=== PATIENT | female | born 1960 | race Caucasian/White ===

== ENCOUNTER → 2024-02-08 | Outpatient (CLI) | payer BC, SELFPAY ==
[2024-02-08 16:27] LABS: Collection Type, Urine Clean Catch
[2024-02-08 17:50] LABS: Bacteria,Urine 2+; Bilirubin,Urine Negative (Negative); Blood,Urine Negative (Negative); Clarity,Urine Turbid (Clear/Hazy); Color,Urine Yellow (Lt Yel-Yel); Glucose, Urine Negative (Negative); Ketones,Urine Negative (Negative); Leukocyte Esterase,Urine Positive (Negative); Nitrite,Urine Positive (Negative); PH,Urine 6.5 (5.0-7.0); Protein,Urine Trace (Neg - Trace); RBC,Urine 11 /hpf (0-3); Specific Gravity,Urine 1.021 (1.001-1.035); Squamous Epithelial Cell,Urine 3 /hpf (0-5); Urobilinogen,Urine Negative mg/dL (0.0-1.0); WBC,Urine 125 /hpf (0-5)
== END | disposition home or self-care (01) ==
LOC: SLDO 16:20
PROVIDERS: PCP Nurse Practitioner Family; Referring Provider Nurse Practitioner Family; Visit Provider Nurse Practitioner Family
DX: N39.0 Urinary tract infection, site not specified (principal)
CPT/HCPCS: 81001; 87077; 87086; 87186

== ENCOUNTER → 2024-04-11 | Outpatient (CLI) | payer BC, SELFPAY ==
[2024-04-11 10:12] LABS: Lactate (Lactic Acid) 1.1 mMol/L (0.4-2.0)
[2024-04-11 10:22] LABS: Basophils # (Auto) 0.1 Thou/mm3 (0.0-0.2); Basophils % (Auto) 1 % (0-2.5); Eosinophils # (Auto) 0.1 Thou/mm3 (0.0-0.5); Eosinophils % (Auto) 1 % (0-10); Hematocrit 30.9 % (36.0-46.0); Hemoglobin 10.1 g/dL (12.0-16.0); Immature Granulocytes % (Auto) 0 % (0-0); Immature Granulocytes Auto 0.03 Thou/mm3 (0.00-0.00); Lymphocytes # (Auto) 1.7 Thou/mm3 (1.0-4.8); Lymphocytes % (Auto) 21 % (10-50); Mean Corpuscular HGB Conc 32.7 g/dl (31.0-37.0); Mean Corpuscular Hemoglobin 29.4 pg (25.0-35.0); Mean Corpuscular Volume 90 fL (80-100); Monocytes # (Auto) 0.5 Thou/mm3 (0.0-0.8); Monocytes % (Auto) 6 % (0-12); Neutrophils # (Auto) 5.5 Thou/mm3 (1.8-7.7); Neutrophils % (Auto) 70 % (37-80); Nucleated Red Blood Cell % 0 /100 WBC (0); Platelet Count 286 Thou/mm3 (140-440); RDW Standard Deviation 50.6 fL (36.4-46.3); Red Blood Count 3.44 Miln/mm3 (4.00-5.20); White Blood Count 7.9 Thou/mm3 (3.6-11.0)
[2024-04-11 10:41] LABS: Alanine Aminotransferase 12 U/L (10-49); Albumin, Serum 4.2 gm/dL (3.4-4.8); Albumin/Globulin Ratio 1.8 (1.2-2.2); Alkaline Phosphatase 86 U/L (46-116); Anion Gap 9 (7-16); Aspartate Amino Transferase 14 U/L (0-34); BUN/Creatinine Ratio 31 Ratio (12-20); Bilirubin,Total 0.2 mg/dL (0.3-1.2); Blood Urea Nitrogen 25 mg/dL (9-23); Calcium 9.3 mg/dL (8.3-10.6); Calcium (Corrected) 9.3 mg/dL (8.5-10.1); Carbon Dioxide 25.3 mMol/L (20.0-31.0); Chloride 104 mMol/L (98-107); Creatinine (Component) 0.8 mg/dL (0.6-1.3); Globulin 2.4 gm/dL (2.3-3.5); Glucose 109 mg/dL (74-106); Osmolality,Calculated 281 (275-295); Potassium 5.1 mMol/L (3.4-5.1); Sodium 138 mMol/L (136-145); Total Protein 6.6 gm/dL (5.7-8.2); eGFR > 60 See Note
== END | disposition home or self-care (01) ==
LOC: COPL 09:34
PROVIDERS: PCP Family Medicine; Referring Provider Registered Nurse; Visit Provider Registered Nurse
DX: I95.9 Hypotension, unspecified (principal)
CPT/HCPCS: 36415; 80053; 83605; 85025

== ENCOUNTER 2024-08-18 05:39 | Emergency (ER) | payer BC, SELFPAY ==
[2024-08-18 05:45] VITALS: BP 119/79; PULSE 86; RESP 15; TEMP 36.8; O2SAT 96; BMI 24.7
--- NOTE | 2024-08-18 06:13 | EDNOTE_ITS ---
ED Headache RME/HPI General Chief Complaint: Headache Stated Complaint: migraine since sunday Time Seen by Provider: 08/18/24 06:15 Source: patient Arrival date/time: 08/18/24 05:39 64-year-old female with a history of migraines presents to the emergency room with a chief complaint of a migraine since Sunday. Mode of arrival: ambulatory Limitations: no limitations Related Data Home Medications ?Medication ?Instructions ?Recorded ?Confirmed alprazolam 0.25 mg tablet 0.25 mg PO BID PRN ANXIETY # 0 tabs 09/17/16 08/24/21 omeprazole 20 mg capsule,delayed 20 mg PO QDAY ##0 08/24/21 release sumatriptan succinate 100 mg 100 mg PO Q2HR PRN HEADAC HE 09/17/16 08/24/21 tablet (Imitrex) (MIGRAINE) #0 tabs Previous Rx's ?Medication ?Instructions ?Recorded promethazine 12.5 mg rectal 12.5 mg NC Q8HR PRN nausea and 12/15/19 suppository vomiting #12 ea cyclobenzaprine 10 mg tablet 10 mg PO TID PRN muscle s pasm #30 03/25/20 tabs promethazine 12.5 mg rectal 12.5 mg NC Q8HR PRN nausea and 08/24/21 suppository vomiting #12 ea promethazine 12.5 mg rectal 12.5 mg NC Q8HR PRN nausea and 10/03/21 suppository vomiting #12 ea promethazine 12.5 mg rectal 12.5 mg NC Q8HR PRN nausea and 05/01/22 suppository vomiting #12 ea promethazine 12.5 mg rectal 12.5 mg NC Q8HR PRN nausea and 05/23/23 suppository vomiting #12 ea Allergies Allergy/AdvReac Type Severity Reaction Status Date / Time Iodine and Iodide Containing Allergy Severe Hives Verified 10/12/23 13:11 Produc Review of Systems Review of Systems Systems Reviewed: All systems reviewed, normal except as documented Constitutional Constitutional: Reports system reviewed and no additional complaints, except as documented, Denies fatigue, Denies fever(s), Reports headache(s) and Denies weakness Eyes Eyes: Reports system reviewed and no additional complaints, except as documented, Denies blurry vision and Denies change in vision ENT Ears, Nose, Mouth, and Throat: Reports system reviewed and no additional complaints, except as documented, Denies otalgia, Reports headache(s), Denies nasal congestion, Denies throat swelling and Denies vertigo Cardiovascular Cardiovascular: Reports system reviewed and no additional complaints, except as documented, Denies chest pain, Denies dyspnea and Denies dyspnea on exertion Respiratory Respiratory: Reports system reviewed and no additional complaints, except as documented, Denies chest congestion, Denies cough, Denies dyspnea, Denies dyspnea on exertion and Denies wheezing Gastrointestinal Gastrointestinal: Reports system reviewed and no additional complaints, except as documented, Denies abdominal pain, Denies cramping, Denies nausea and Denies vomiting Genitourinary Genitourinary: Reports system reviewed and no additional complaints, except as documented Musculoskeletal Musculoskeletal: Reports system reviewed and no additional complaints, except as documented and Denies back pain Integumentary/Breasts Skin/Breast: Reports system reviewed and no additional complaints, except as documented and Denies wounds Neurologic Neurologic: Reports system reviewed and no additional complaints, except as documented, Denies confusion, Reports headache(s), Denies lack of coordination, Denies vertigo and Denies weakness Psychiatric Psychiatric: Reports system reviewed and no additional complaints, except as documented, Denies anxiety, Denies confusion, Denies depression, Denies paranoia, Denies suicidal ideation and Denies tactile hallucinations Endocrine Endocrine: Reports system reviewed and no additional complaints, except as documented and Denies fatigue Hematologic/Lymphatic Hematologic/Lymphatic: Reports system reviewed and no additional complaints, except as documented and Denies lymphadenopathy Allergic/Immunologic Allergic/Immunologic: Reports system reviewed and no additional complaints, except as documented, Denies throat swelling, Denies urticaria and Denies wheezing Past Medical History Past Medical History NEUROLOGIC: Positive Neurological Disorders and Migraine CARDIAC: Negative Congestive Heart Failure RESPIRATORY: Negative Chronic Obstructive Pulmonary Disease (COPD) GENITOURINARY: Negative Renal Disease ENDOCRINE: Negative Diabetes Mellitus Type 1 or Diabetes Mellitus Type 2 Surgical History SURGICAL: Positive Hysterectomy Social History SMOKING STATUS: Never smoker ED Exam General Limitations: Present no limitations General appearance: Present alert and in no apparent distress Head Head exam: Present atraumatic Eye Eye exam: Present normal appearance, PERRL and EOMI ENT ENT exam: Present normal exam, normal oropharynx and mucous membranes moist Neck Neck exam: Present normal inspection, full ROM and trachea midline Chest Chest inspection: Present normal inspection and symmetric chest wall rise Respiratory Respiratory exam: Present normal lung sounds bilaterally Cardiovascular Cardiovascular exam: Present regular rate, normal rhythm and normal heart sounds Abdominal Exam Abdominal exam: Present soft and normal bowel sounds Extremities Exam Extremities exam: Present normal inspection and full ROM Back Exam Back exam: Present normal inspection and full ROM Neurological Exam Neurological exam: Present alert, oriented X3, CN II-XII intact, normal gait and reflexes normal Expanded Neurological Exam Patient oriented to: Present person, place and time Speech: Present fluid speech Cranial nerves: Normal: EOM function (II, III, IV, ), facial sensation (V) and facial palsy (VII) Cerebellar function: Present normal gait Motor strength - LUE: 5/5 Motor strength - RUE: 5/5 Motor strength - LLE: 5/5 Motor strength - RLE: 5/5 Coma scale eye opening: spontaneous Coma scale motor response: obeys commands Coma scale verbal response: oriented Coma scale total: 15 Psychiatric Psychiatric exam: Present normal affect and normal mood Skin Skin exam: Present warm, dry, intact and normal color Course Quality Measures none Orders Category Date Time Status DiphenhydrAMINE [Benadryl] Med 08/18/24 06:09 Discontinued 25 mg PO X1 ONE Ketorolac Inj [Toradol Inj] Med 08/18/24 06:09 Discontinued 30 mg IM X1 ONE Metoclopramide [Reglan] Med 08/18/24 06:11 Discontinued 10 mg PO X1 ONE Vital Signs Vital signs: Vital Signs Temperature 98.3 F 08/18/24 05:45 Pulse Rate 86 08/18/24 05:45 Respiratory Rate 15 08/18/24 05:45 Blood Pressure 119/79 08/18/24 05:45 Pulse Oximetry (%) 96 08/18/24 05:45 Oxygen Delivery Method Room Air 08/18/24 05:45 Headache MDM Narrative MDM Narrative:: 64-year-old female with a history of migraines presents to the emergency room with a chief complaint of a migraine since Sunday. Patient is hemodynamically stable and in no apparent distress Physical examination shows a normal neurological exam. The patient is a GCS of 15 pupils are PERRLA EOMs are intact the patient has a normal steady gait. Patient denies any head trauma. Migraine medication was given the patient was reevaluated in 1 hour with significant improvement of her symptoms. Patient has a neurologist that follows up with her migraines and states that she recently got Botox which helped. Patient was discharged and educated to follow-up with primary care provider in the next 24 to 48 hours and return to the emergency room for any evidence of worsening signs or symptoms Patient data External records reviewed:: [facility] previous records Clinical information provided by:: patient Social determinants that could affect healthcare access:: none Patient has the following chronic illnesses:: Migraines How is presenting disease/condition affected by chronic disease/condition?: exacerbated by Evaluation data The following diagnostics were reviewed and interpreted by me:: lab results and radiology exam(s) Lab and/or radiology exams considered but not ordered:: Labs and radiology exams considered and ordered Interpretation Summary: N/A Medications / Prescriptions Medications or Prescriptions considered but not ordered:: Medication given Medication administrations:: Medication Administration History Discontinued Medications Diphenhydramine HCl (Diphenhydramine 25 Mg Capsule) 25 mg PO X1 ONE Stop: 08/18/24 06:10 Last Admin: 08/18/24 06:28 Dose: 25 mg Documented By: SONYA Ketorolac Tromethamine (Ketorolac Inj 60 Mg/2 Ml Vial) 30 mg IM X1 ONE Stop: 08/18/24 06:10 Last Admin: 08/18/24 06:28 Dose: 30 mg Documented By: SONYA Metoclopramide HCl (Metoclopramide 5 Mg Tablet) 10 mg PO X1 ONE Stop: 08/18/24 06:12 Last Admin: 08/18/24 06:28 Dose: 10 mg Documented By: SONYA Medication given Consultations Consultation(s) initiated? (list below): No Diagnosis Differential diagnosis headache: migraine, tension headache, headache and sinusitis Most likely diagnosis given after review of the tests above:: Migraine Admission Indicated Admission indicated?: not indicated Admission Request Was there a request for admission?: No Disposition Plan Disposition Plan: Discharge Discharge Attestation Discharge Attestation: The patient and all family members were given an opportunity to ask questions and understood the discharge instructions. Discharge instructions specifically effects, indications for sooner follow up or return to the emergency department, and the expected course of current diagnosis. Patient condition: Stable Discharge Plan Plan Patient Disposition: HOME (Self Care) Discharge Disposition comment: Stable Prescriptions/Referrals Prescriptions/Med Rec: No Action sumatriptan succinate [Imitrex] 100 MG tablet 100 mg PO Q2HR PRN (Reason: HEADACHE (MIGRAINE)) Qty: 0 alprazolam 0.25 MG tablet 0.25 mg PO BID PRN (Reason: ANXIETY) Qty: 0 omeprazole 20 MG capsule,delayed release(DR/EC) 20 mg PO QDAY Qty: 0 promethazine 12.5 mg suppository 12.5 mg NC Q8HR PRN (Reason: nausea and vomiting) Qty: 12 0RF cyclobenzaprine 10 mg tablet 10 mg PO TID PRN (Reason: muscle spasm) Qty: 30 0RF promethazine 12.5 mg suppository 12.5 mg NC Q8HR PRN (Reason: nausea and vomiting) Qty: 12 0RF promethazine 12.5 mg suppository 12.5 mg NC Q8HR PRN (Reason: nausea and vomiting) Qty: 12 0RF promethazine 12.5 mg suppository 12.5 mg NC Q8HR PRN (Reason: nausea and vomiting) Qty: 12 0RF promethazine 12.5 mg suppository 12.5 mg NC Q8HR PRN (Reason: nausea and vomiting) Qty: 12 0RF Problem List Clinical Impression: Migraine Patient/Caregiver Discharge Instructions Education Materials: Headache Migraine Stages Tx, Headache Migraine Triggers Prevent, ED Headache, Migraine, Classic Additional Instructions: Please follow-up with your primary care provider in the next 24 to 48 hours For any evidence of worsening signs or symptoms return to emergency room immediately Print Language: Paraguayan Stand Alone Forms: [facility] Award Info., Work/School Release, Patient Portal Info Letter PA/COVERSTITCH ELASTIC ATTACHER Supervising Physician PA/COVERSTITCH ELASTIC ATTACHER Supervising Physician: Dr Monaco
[2024-08-18] MEDS: METOCLOPRAMIDE 5 MG TABLET 10 MG PO (06:28)
[2024-08-18] MEDS: KETOROLAC INJ 60 MG/2 ML VIAL 30 MG IM (06:28)
[2024-08-18] MEDS: DiphenhydrAMINE 25 MG CAPSULE PO (06:28)
== END 2024-08-18 07:02 | disposition home or self-care (01) ==
LOC: SERX 07:06
PROVIDERS: Emergency Provider Emergency Medicine; PCP Family Medicine
DX: G43.909 Migraine, unspecified, not intractable, without status migrainosus (principal)
CPT/HCPCS: 96372; 99283; J1885; A9270

== ENCOUNTER 2025-03-04 14:33 | Emergency (ER) | payer BC, SELFPAY ==
[2025-03-04 14:49] VITALS: PULSE 69; RESP 16; O2SAT 98
[2025-03-04 14:53] VITALS: BP 127/84; PULSE 65; RESP 19; TEMP 36.7; O2SAT 96
[2025-03-04 16:20] VITALS: BP 131/72; PULSE 63; RESP 16; TEMP 36.8; O2SAT 97
--- NOTE | 2025-03-04 16:30 | EKG_ITS ---
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
--- NOTE | 2025-03-04 16:31 | PD.EDABDPN ---
ED Abdominal Pain RME/HPI General Chief Complaint: Abdominal Pain Stated complaint: SYNCOPE Time seen by provider: 03/04/25 16:28 Arrival date/time: 03/04/25 14:33 RME / HPI RME / HPI narrative: DR. CARSON MAIN ED EVALUATION: Patient with long-standing chronic constipation on Linzess therapy and followed by GI specialist presents with ongoing generalized abdominal pain of approximately 4-5 days duration. 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 PMH: Chronic Constipation, Esophageal Stricture PSH: Esophageectomy with small bowel transposition Allergies: Iodine/Iodide Social: Alcohol overuse disorder, No tobacco, No illicit drugs Related Data Home Medications ?Medication ?Instructions ?Recorded ?Confirmed alprazolam 0.25 mg tablet 0.25 mg PO BID PRN ANXIETY #0 tabs 09/17/16 08/24/21 omeprazole 20 mg capsule,delayed 20 mg PO QDAY ##0 09/17/16 08/24/21 release sumatriptan succinate 100 mg 100 mg PO Q2HR PRN HEADACHE 09/17/16 08/24/21 tablet (Imitrex) (MIGRAINE) #0 tabs Previous Rx's ?Medication ?Instructions ?Recorded promethazine 12.5 mg rectal 12.5 mg WI Q8HR PRN nausea and 12/15/19 suppository vomiting #12 ea cyclobenzaprine 10 mg tablet 10 mg PO TID PRN muscle spasm #30 03/25/20 tabs promethazine 12.5 mg rectal 12.5 mg WI Q8HR PRN nausea and 08/24/21 suppository vomiting #12 ea promethazine 12.5 mg rectal 12.5 mg WI Q8HR PRN nausea and 10/03/21 suppository vomiting #12 ea promethazine 12.5 mg rectal 12.5 mg WI Q8HR PRN nausea and 05/01/22 suppository vomiting #12 ea promethazine 12.5 mg rectal 12.5 mg WI Q8HR PRN nausea and 05/23/23 suppository vomiting #12 ea tramadol 25 mg tablet 25 mg PO TID #14 tabs 03/04/25 Allergies Allergy/AdvReac Type Severity Reaction Status Date / Time Iodine and Iodide Containing Allergy Severe Hives Verified 03/04/25 14:51 Produc Review of Systems Review of Systems Systems Reviewed: All systems reviewed, normal except as documented Past Medical History Social History ALCOHOL: Current ALCOHOL FREQUENCY: 3 or More Drinks per Day ALCOHOL LAST INTAKE: Unknown ED Exam Narrative Physical exam: GEN. APPEARANCE: The patient is alert awake oriented X-3 under no distress, lying down comfortably, does not look ill/toxic. Patient has good eye contact. Patient is cooperative. VITALS: All vitals were reviewed and the pulse ox is 97%, which is normal according to my interpretation HEENT: Normocephalic, atraumatic and nontender. Pupils are equal and reactive. Oral mucosa is moist. NECK: Supple, nontender, no meningismus, no JVD. There is no thyromegaly and no lymphadenopathy. CHEST: Nontender on palpation no deformity and no crepitus. CARDIOVASCULAR: Heart regular rhythm, no murmur or gallop rub or extra beats. LUNGS: Clear to auscultation bilaterally with symmetrical chest rise. No laboring tachypnea or wheezing. No intercostal subcostal retraction. No rales and no rhonchi. ABDOMEN: Soft, flat, generalized tenderness to the RUQ/RLQ, no guarding or rebound tenderness. There are no abnormal masses palpated. No pulsatile masses or bruits. Active and normal bowel sounds. EXTREMITIES: Normal inspection and palpation. No edema. No cyanosis. Patient is able to move all 4 extremities well SKIN: Warm and dry, no rashes noted. MUSCULOSKELETAL: No lumbar or midline bony tenderness. There is no CVA tenderness. No paraspinal muscle spasm or tenderness. NEURO: Cranial nerves II through XII grossly intact. There are no focal neurologic deficits noted. GCS is 15 PSYCHIATRIC: Patient is in normal mood and affect, cooperative. LYMPHATICS: No major lymphadenopathy noted. Course Quality Measures none Orders Category Date Time Status CT Screening NOW Care 03/04/25 16:32 Completed EKG (ED ONLY) *Do not use* NOW Care 03/04/25 16:[address] abdomen pelvis wo con Stat Exams 03/04/25 16:40 Completed EKG (ED Only) Stat Exams 03/04/25 16:30 Draft B-Type Natriuretic Peptide Stat Lab 03/04/25 17:04 Completed CBC [CBC] Stat Lab 03/04/25 17:04 Completed CMP [Comprehensive Metabolic Panel] Stat Lab 03/04/25 17:04 Completed Lipase Stat Lab 03/04/25 17:04 Completed Magnesium Stat Lab 03/04/25 17:04 Completed Partial Thromboplastin Time Stat Lab 03/04/25 17:04 Completed Prothrombin Time with INR Stat Lab 03/04/25 17:04 Completed TSH [Thyroid Stimulating Hormone] Stat Lab 03/04/25 17:04 Completed Urinalysis, C/S if Indicated Stat Lab 03/04/25 17:29 Completed Magnesium Citrate Liqd [Citrate of Magnesia Liqd] Med 03/04/25 19:25 Discontinued 150 ml PO X1 ONE Morphine* Inj Med 03/04/25 16:34 Discontinued 4 mg IVP X1 ONE Morphine* Inj Med 03/04/25 19:20 Discontinued 4 mg IVP X1 ONE Ondansetron Inj [Zofran Inj] Med 03/04/25 16:34 Discontinued 4 mg IVP X1 ONE Sodium Chloride 0.9% 1000 ml [Ns] 1,000 ml Med 03/04/25 16:30 Discontinued IV 999 mls/hr Vital Signs Vital signs: Vital Signs Temperature 98.1 F 03/04/25 14:53 Pulse Rate 65 03/04/25 14:53 Respiratory Rate 19 03/04/25 14:53 Blood Pressure 127/84 03/04/25 14:53 Pulse Oximetry (%) 96 03/04/25 14:53 Oxygen Delivery Method Room Air 03/04/25 14:53 Abdominal Pain MDM MDM Narrative MDM Narrative:: Scribe Attestation: ILibby am scribing for and in the presence of Dr. Christiansen. Provider Notation: Although this document has been carefully reviewed, there may still be some phonetic and other typographical errors. These errors are purely grammatical due to imperfections in the software program and should not be construed in any way to compromise the substance of the patient's medical care during this visit. Patient with long-standing chronic constipation on Linzess therapy and followed by GI specialist presents with ongoing generalized abdominal pain of approximately 4-5 days duration. 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 Please see PE findings. Laboratory markers, including CBC and serum chemistries were essentially unremarkable. UA was negative. CT scan demonstrated abundance of stool within right colon. Minimal thickening of the bladder wall suggestive of possible cystitis. No obstructive findings or gross inflammation apparent. Patient administered IV fludis, low-dose narcotic analgesics/anti-emetics with mild to moderate relief. Patient data External records reviewed:: [facility] previous records (Reviewed prior ED records from 08/18/24. Patient was seen for Migraine.) and EMS form Clinical information provided by:: patient and EMS Social determinants that could affect healthcare access:: none Patient has the following chronic illnesses:: Chronic Constipation, Esophageal Stricture How is presenting disease/condition affected by chronic disease/condition?: exacerbated by Evaluation data The following diagnostics were reviewed and interpreted by me:: lab results, radiology exam(s) and EKG tracing(s) (EKG demonstrates ) Lab and/or radiology exams considered but not ordered:: None Interpretation Summary: RADIOLOGY Abdomen/Pelvis CT: Findings: No focal liver or splenic lesions No gallstones No pancreatic or adrenal mass No renal or ureteral calculi, no hydronephrosis No pericecal inflammatory change Abundant stool in the right colon No obstruction No diverticulitis Absent uterus No pelvic mass Minimal thickening of the urinary bladder wall Grade 1 anterolisthesis L4 on L5 with 4 mm central lumbar disc bulge at this level and moderate bilateral L4 ganglionic compression IMPRESSION: No renal or ureteral calculi, no hydronephrosis Abundant stool in the right colon, no obstruction No CT findings of appendicitis or diverticulitis Minimal thickening of the urinary bladder wall, consider cystitis L4-L5 grade 1 anterolisthesis with 4 mm central lumbar disc bulge producing moderate bilateral L4 ganglionic compression Medications / Prescriptions Medications or Prescriptions considered but not ordered:: None Medication administrations:: Medication Administration History Discontinued Medications Sodium Chloride (Ns) 1,000 mls @ 999 mls/hr IV .Q1H1M ONE Stop: 03/04/25 17:30 Last Infusion: 03/04/25 18:17 Dose: Infused Documented By: Admin: 03/04/25 17:16 Dose: 999 mls/hr Documented By: DOTTIE Magnesium Citrate (Magnesium Citrate 300 Ml Btl) 150 ml PO X1 ONE Stop: 03/04/25 19:26 Last Admin: 03/04/25 19:52 Dose: 150 ml Documented By: DOTTIE Morphine Sulfate (Morphine Sulf Inj 4 Mg/Ml Vial) 4 mg IVP X1 ONE Stop: 03/04/25 16:35 Last Admin: 03/04/25 17:12 Dose: 4 mg Documented By: DOTTIE Morphine Sulfate (Morphine Sulf Inj 4 Mg/Ml Vial) 4 mg IVP X1 ONE Stop: 03/04/25 19:21 Last Admin: 03/04/25 19:36 Dose: 4 mg Documented By: DOTTIE Ondansetron HCl (Ondansetron Inj 2 Mg/Ml Inj 2 Ml) 4 mg IVP X1 ONE; Protocol Stop: 03/04/25 16:35 Last Admin: 03/04/25 17:12 Dose: 4 mg Documented By: DOTTIE See abvoe if any Consultations Consultation(s) initiated? (list below): No Diagnosis Differential diagnosis abdominal pain: acute appendicitis, constipation and small bowel obstruction Most likely diagnosis given after review of the tests above:: Constipation, UTI Admission Indicated Admission indicated?: not indicated Explain why admission is indicated or not indicated:: Patient does not meet admission criteria Admission Request Was there a request for admission?: No Disposition Plan Disposition Plan: Discharge Discharge Attestation Discharge Attestation: The patient and all family members were given an opportunity to ask questions and understood the discharge instructions. Discharge instructions specifically effects, indications for sooner follow up or return to the emergency department, and the expected course of current diagnosis. Patient condition: Stable Discharge Plan Plan Patient Disposition: HOME (Self Care) Discharge Disposition comment: Stable Prescriptions/Referrals Prescriptions/Med Rec: New tramadol 25 mg tablet 25 mg PO TID Qty: 14 0RF Rx Instructions: Pt to avoid Flexeril while on tramadol No Action sumatriptan succinate [Imitrex] 100 MG tablet 100 mg PO Q2HR PRN (Reason: HEADACHE (MIGRAINE)) Qty: 0 alprazolam 0.25 MG tablet 0.25 mg PO BID PRN (Reason: ANXIETY) Qty: 0 omeprazole 20 MG capsule,delayed release(DR/EC) 20 mg PO QDAY Qty: 0 promethazine 12.5 mg suppository 12.5 mg WI Q8HR PRN (Reason: nausea and vomiting) Qty: 12 0RF cyclobenzaprine 10 mg tablet 10 mg PO TID PRN (Reason: muscle spasm) Qty: 30 0RF promethazine 12.5 mg suppository 12.5 mg WI Q8HR PRN (Reason: nausea and vomiting) Qty: 12 0RF promethazine 12.5 mg suppository 12.5 mg WI Q8HR PRN (Reason: nausea and vomiting) Qty: 12 0RF promethazine 12.5 mg suppository 12.5 mg WI Q8HR PRN (Reason: nausea and vomiting) Qty: 12 0RF promethazine 12.5 mg suppository 12.5 mg WI Q8HR PRN (Reason: nausea and vomiting) Qty: 12 0RF Referrals: Keon Vallecillo MD [Primary Care Provider, Family Practice] - In 1 week Problem List Clinical Impression: Constipation, Constipation by delayed colonic transit, UTI (urinary tract infection) Impression comment: Constipation/UTI Patient/Caregiver Discharge Instructions Discharge Activity: activity as tolerated Diet Instructions: Clear liquid diet x 24 hours and advance as tolerated. Education Materials: Treating Constipation, ED CYSTITIS Female Adult Additional Instructions: Maintain clear liquid diet x 24 hours and advance as tolerated. Medications as directed. Follow-up with primary care/GI in 1 week. Print Language: Italian Stand Alone Forms: [facility] Award Info., Work/School Release, Patient Portal Info Letter
--- NOTE | 2025-03-04 16:40 | XR_ITS ---
Examination: CT abdomen and pelvis without contrast. Coronal 3-D reconstructions. Sagittal 2-D reconstructions. Date and time of exam: March 04, 2025, 1736 hours, comparison October 15, 2015 INDICATIONS: Right-sided abdominal pain today CTDI: vol (mGy): 7.06 DLP: (mGycm): 395 Technique: Axial images of the abdomen have been obtained, 3 mm slice thickness Intravenous contrast material has not been administered. Low dose protocols were performed. One or more of the following dose reduction techniques were used; automated exposure control, adjustment of the mA and/or KV according to patient size, use of iterative reconstruction technique. Findings: No focal liver or splenic lesions No gallstones No pancreatic or adrenal mass No renal or ureteral calculi, no hydronephrosis No pericecal inflammatory change Abundant stool in the right colon No obstruction No diverticulitis Absent uterus No pelvic mass Minimal thickening of the urinary bladder wall Grade 1 anterolisthesis L4 on L5 with 4 mm central lumbar disc bulge at this level and moderate bilateral L4 ganglionic compression IMPRESSION: No renal or ureteral calculi, no hydronephrosis Abundant stool in the right colon, no obstruction No CT findings of appendicitis or diverticulitis Minimal thickening of the urinary bladder wall, consider cystitis L4-L5 grade 1 anterolisthesis with 4 mm central lumbar disc bulge producing moderate bilateral L4 ganglionic compression
[2025-03-04] MEDS: ONDANSETRON INJ 2 MG/ML INJ 2 ML 4 MG IVP (17:12)
[2025-03-04] MEDS: MORPHINE SULF INJ 4 MG/ML VIAL IVP ×2 (17:12→19:36)
[2025-03-04] MEDS: SODIUM CHLORIDE 0.9% 1000 ML 1,000 ML 999 ML IV (17:16)
[2025-03-04 17:19] LABS: Basophils # (Auto) 0.1 Thou/mm3 (0.0-0.2); Basophils % (Auto) 1 % (0-2.5); Eosinophils # (Auto) 0.1 Thou/mm3 (0.0-0.5); Eosinophils % (Auto) 2 % (0-10); Hematocrit 32.6 % (36.0-46.0); Hemoglobin 10.5 g/dL (12.0-16.0); Immature Granulocytes Auto 0.02 Thou/mm3 (0.00-0.00); Lymphocytes # (Auto) 2.0 Thou/mm3 (1.0-4.8); Lymphocytes % (Auto) 34 % (10-50); Mean Corpuscular HGB Conc 32.2 g/dl (31.0-37.0); Mean Corpuscular Hemoglobin 30.0 pg (25.0-35.0); Mean Corpuscular Volume 93 fL (80-100); Monocytes # (Auto) 0.5 Thou/mm3 (0.0-0.8); Monocytes % (Auto) 8 % (0-12); Neutrophils # (Auto) 3.1 Thou/mm3 (1.8-7.7); Neutrophils % (Auto) 54 % (37-80); Nucleated Red Blood Cell # 0.00 Thou/mm3 (0.00-0.00); Nucleated Red Blood Cell % 0 /100 WBC (0); Platelet Count 235 Thou/mm3 (140-440); RDW Standard Deviation 41.1 fL (36.4-46.3); Red Blood Count 3.50 Miln/mm3 (4.00-5.20); White Blood Count 5.7 Thou/mm3 (3.6-11.0)
[2025-03-04 17:45] LABS: Collection Type, Urine Clean Catch
[2025-03-04 17:48] LABS: INR 1.0 (0.9-1.3); Partial Thromboplastin Time 26.1 Seconds (22.0-36.0); Prothrombin Time 10.4 Seconds (9.0-12.2)
[2025-03-04 17:51] LABS: B-Type Natriuretic Peptide 69 pg/mL (0-100)
[2025-03-04 17:58] LABS: Alanine Aminotransferase 26 U/L (10-49); Albumin, Serum 4.6 gm/dL (3.4-4.8); Albumin/Globulin Ratio 2.0 (1.2-2.2); Alkaline Phosphatase 68 U/L (46-116); Anion Gap 9 (7-16); Aspartate Amino Transferase 28 U/L (0-34); BUN/Creatinine Ratio 13 Ratio (12-20); Bilirubin,Total 0.3 mg/dL (0.3-1.2); Blood Urea Nitrogen 9 mg/dL (9-23); Calcium 9.9 mg/dL (8.3-10.6); Calcium (Corrected) 9.9 mg/dL (8.5-10.1); Carbon Dioxide 27.0 mMol/L (20.0-31.0); Chloride 107 mMol/L (98-107); Creatinine (Component) 0.7 mg/dL (0.6-1.3); Globulin 2.3 gm/dL (2.3-3.5); Glucose 99 mg/dL (74-106); Lipase 45 U/L (12-53); Magnesium 2.1 mg/dL (1.6-2.6); Osmolality,Calculated 283 (275-295); Potassium 4.8 mMol/L (3.4-5.1); Sodium 143 mMol/L (136-145); Thyroid Stimulating Hormone 1.23 uIU/mL (0.55-4.78); Total Protein 6.9 gm/dL (5.7-8.2); eGFR > 60 See Note
[2025-03-04 18:28] LABS: Bilirubin,Urine Negative (Negative); Blood,Urine Negative (Negative); Clarity,Urine Clear (Clear/Hazy); Color,Urine Lt-Yellow (Lt Yel-Yel); Culture Indicated,Urine Not Indicated; Glucose, Urine Negative (Negative); Ketones,Urine Negative (Negative); Leukocyte Esterase,Urine Negative (Negative); Nitrite,Urine Negative (Negative); PH,Urine 8.0 (5.0-7.0); Protein,Urine Negative (Neg - Trace); RBC,Urine < 1 /hpf (0-3); Specific Gravity,Urine 1.009 (1.001-1.035); Squamous Epithelial Cell,Urine 2 /hpf (0-5); Urobilinogen,Urine Negative mg/dL (0.0-1.0); WBC,Urine < 1 /hpf (0-5)
[2025-03-04 18:34] VITALS: BP 123/77; PULSE 79; RESP 18; TEMP 36.8; O2SAT 96
--- NOTE | 2025-03-04 19:24 | PC.NURSE ---
first attempt to call patient from front lobby, no answer, will recall in 15 min.
[2025-03-04] MEDS: MAGNESIUM CITRATE 300 ML BTL 150 ML PO (19:52)
[2025-03-04 19:54] VITALS: BP 118/69; PULSE 97; RESP 15; TEMP 36.7; O2SAT 96
== END 2025-03-04 20:10 | disposition home or self-care (01) ==
PROVIDERS: Emergency Provider Emergency Medicine; PCP Family Medicine
DX: K59.01 Slow transit constipation (principal); N39.0 Urinary tract infection, site not specified; G95.29 Other cord compression; M43.16 Spondylolisthesis, lumbar region; M51.360 Other intervertebral disc degeneration, lumbar region with discogenic back pain only
CPT/HCPCS: 36415; 74176; 80053; 81001; 83690; 83735; 83880; 84443; 85025; 85610; 85730; 93005; 99284; J2270; J2405; J7030; A9270

== ENCOUNTER → 2025-03-13 | Outpatient (CLI) | payer BC, SELFPAY ==
--- NOTE | 2025-03-13 16:20 | XR_ITS ---
Examination: CT abdomen with intravenous contrast CT pelvis with intravenous contrast 2-D coronal reconstructions 2-D sagittal reconstructions Date and time of exam: March 13, 2025, 0446 hours INDICATIONS: Onset abdominal pain this week COMPARISON: March 04, 2025. CTDI: vol (mGy) 8.08 DLP: (mGycm) 433 Technique: Multiple axial sections of the abdomen and pelvis have been obtained. 64 slice high-resolution scanner used. 3 mm axial sections have been obtained, post intravenous injection 60 cc [id number] 2-D sagittal, coronal reconstructions obtained. Low dose protocols were performed. One or more of the following dose reduction techniques were used; automated exposure control, adjustment of the mA and/or KV according to patient size, use of iterative reconstruction technique. Findings: No focal liver lesions 10 mm splenic cyst Small retrocardiac gastric hernia Contracted gallbladder No pancreatic or adrenal mass No renal or ureteral calculi, no hydronephrosis Aorta normal size No bowel obstruction No pericecal inflammatory change No diverticulitis Moderate stool in the rectum Mild thickening of the rectal wall Grade 1 anterolisthesis L4 on L5 Absent uterus Mild thickening of the urinary bladder wall IMPRESSION: No renal or ureteral calculi, no hydronephrosis No pericecal inflammatory change No bowel obstruction or diverticulitis Mild thickening of the urinary bladder wall, consider cystitis Moderate stool in the rectum with mild thickening of the rectal wall, consider proctitis, other etiologies not excluded, recommend direct inspection
== END | disposition home or self-care (01) ==
PROVIDERS: PCP Registered Nurse; Referring Provider Registered Nurse; Visit Provider Registered Nurse
DX: N32.89 Other specified disorders of bladder (principal); K59.00 Constipation, unspecified
CPT/HCPCS: 74177; A4649; Q9967